=== PATIENT | female | born 1960 | race Caucasian/White ===

== ENCOUNTER 2016-11-28 14:50 | Observation (INO) | payer OTHER ==
[2016-11-28] MEDS ORDERED: NITROGLYCERINE 2 % OINTMENT PACK TOP ONE (15:14)
--- NOTE | 2016-11-28 15:17 | EDPRACDOC ---
- General Information Chief Complaint: Chest Pain Stated Complaint: CHEST PAIN; SHOB Time Seen by Provider: 11/28/16 15:13 Information Source: Patient Mode of Arrival: Car Home Medications: Home Medications Aspirin (Enteric Coated) [Ecotrin] 324 mg PO .ONCE 11/28/16 Esomeprazole Magnesium [Nexium] 40 mg PO BID 11/28/16 Levothyroxine [Synthroid, Levoxyl] 75 mcg PO DAILY 11/28/16 Mometasone/Formoterol [Dulera 200 Mcg/5 Mcg Inhaler] 1 puff INH BID 11/28/16 Nitroglycerin [Nitrostat] 0.4 mg SL .ONCE 11/28/16 Allergies/Adverse Reactions: Allergies Allergy/AdvReac Type Severity Reaction Status Date / Time codeine Allergy Anaphylaxis Verified 11/28/16 15:26 * - History of Present Illness Onset: last night HPI: PATIENT PRESENTS C/O CHEST PRESSURE MIDSTERNUM WITHOUT RADIATION THAT BEGAN LAST NIGHT. MILD SOB. NEVER OCCURRED BEFORE. DENIES PRIOR STRESS TEST OR ANGIOGRAM. HX OF THYROID DISEASE. DENIES HTN, HIGH CHOLESTEROL OR SMOKING. FATHER HAD UT AT 50. TOOK ASPIRIN 325 PRIOR TO ARRIVAL AT PCP OFFICE. NITRO TAKEN WELL WHICH IMPROVED PAIN Chest Pain Location: Reports: Substernal Pain Radiation: Reports: None Symptoms Occur: Reports: Gradually Cardiac Risk Factors: Reports: Family History. Denies: Smoker Cardiac History of: Reports: None PE Risk Factors: Reports: None Medications within 24 Hours: Reports: None Prehospital Care: Reports: None Pain Came On: Reports: Gradually Pain Status: Present Now Pain Description: Reports: Pressure Pain Severity: Mild Pain Worsens With: Reports: Nothing Pain Improves With: Reports: Nitroglycerin Associated Signs and Symptoms: Reports: SOB ED Past Medical History - History Reviewed Yes Nurses notes reviewed and agree except as marked Travel Outside of [place] in the Last 3 Months?: No - Patient Medical History Respiratory History: Reports: Asthma GI/ History: Reports: Gastroesophageal Reflux Surgical History: Reports: No Significant History - Social Medical History ETOH: None Substance Abuse: None Lives With: Family Lives In: Home EDM Review of Systems - Review of Systems ROS Negative Except as Marked: Yes All systems reviewed and were negative except as marked Constitutional: No Symptoms Reported. negative: Fever, Chills, Weakness, Fatigue, Loss of Appetite Eyes: No Symptoms Reported. negative: Redness, Blurred Vision, Double Vision, Discharge, Pain, Light Sensitive, Photophobia Ears: No Symptoms Reported. negative: Pain, Hearing Loss, Drainage, Ear Pulling Throat: No Symptoms Reported. negative: Pain, Swelling Nose: No Symptoms Reported. negative: Congestion, Bleeding, Discharge, Injection, Swelling, Deformity, Ecchymosis, Tender, Abrasion, Laceration Mouth: No Symptoms Reported. negative: Pain, Drooling Respiratory: No Symptoms Reported. negative: Cough, Brassy Cough, Barky Cough, Shortness of Breath, Wheezing, Hemoptysis Cardiovascular: Chest Pain. negative: Cyanosis, Edema, Orthopnea, Palpitations , PND, Syncope, Skin Mottling Gastrointestinal: No Symptoms Reported. negative: Pain, Constipation, Nausea, Vomiting, Diarrhea, Melena, Formula Intolerance Genitourinary: No Symptoms Reported. negative: Dysuria, Hematuria, Frequency, Discharge, Bleeding, Testicular Pain, Neurological: No Symptoms Reported. negative: Headache, Dizziness, Seizure, Numbness, Weakness, Speech Difficulty, Gait Difficulty Musculoskeletal: No Symptoms Reported. negative: Neck, Chestwall, Ribs, Back, Shoulder, Arm, Elbow, Forearm, Wrist, Hand, Pelvis, Hip, Femur, Knee, Leg, Ankle , Foot Integumentary: No Symptoms Reported. negative: Itching, Rash, Bruising, Wound Allergic/Immunologic: No Symptoms Reported. negative: Hives, Itching Hematologic: No Symptoms Reported. negative: Lymphadenopathy, Easy Bruising, Easy Bleeding Endocrine: No Symptoms Reported. negative: Weight Gain, Weight Loss Psychiatric: No Symptoms Reported. negative: Anxiety, Depression, Hallucinations, Insomnia, Suicidal - Physical Exam Constitutional: Alert (Awake), No apparent distress Oriented to: Time, Person, Place Last recorded Vital Signs: Last Vital Signs Temp 97.4 F L 11/28/16 15:01 Pulse 70 11/28/16 15:01 Resp 18 11/28/16 15:01 BP 152/78 11/28/16 15:01 Pulse Ox 100 11/28/16 15:01 Oxygen Pulse Oxygen Saturation 100 O2 Device Room Air Oxygen Flow Rate Fraction of Inspired Oxygen ( FIO2) - HEENT Head: Normal ( normocephalic) Eye Exam: Normal (PERRL, EOMI, Sclera white) Oropharynx: Normal (Pharynx:Moist without exudate,Gums-no swelling) Tympanic Membrane: Normal ENT EAC: Normal TMJ: Normal Nose: No Symptoms Reported (septum midline) Neck: Normal (FROM, trachea at midline) - Respiratory/Cardiovascular Respiratory: Normal - CTA (BBS clear to auscultation without adventitious sounds ) Cardiovascular: Normal (RRR without murmur, gallop or rub) - GI Auscultation: Normal (NABS) Palpation: Normal (Soft,No rebound or guarding, non distended) Tenderness: Non tender Lambert's Sign: Negative - Musculoskeletal Back: Normal (Non-Tender) Extremities: Normal (Normal tone, Pulses 2+ No cyanosis or edema, FROM) - Integumentary Skin: Normal, Warm, Dry Lymphatics: Normal (no adenopathy) - Neurologic Memory Impaired: Normal Motor Function: Normal (Normal tone, Pulses 2+ No cyanosis or edema, FROM) Cranial Nerve: Normal (CN II-X11 intact sensation, strength 5/5) Cerebellar: Normal Mood Description: Normal Perception: Normal - Action Patient received Aspirin within last 24 hours?: Yes ASA given in the ED: No Aspirin therapy held due to: Other-specify below* (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 Disposition: Admit IP To This Hospital Condition: Stable Final Diagnosis: Unstable angina Instructions: Chest Pain (ED) Education/Counseling Given To: Patient Education/Counseling Given Regarding: Diagnosis, Treatment, Prognosis Decision to Admit Time: 17:17 Decision to admit date: 11/28/16 Decision to admit: from ED - Physician Consulted Hospitalist Time Called: 17:17 Provider Called: Alfredito Delcid Time Personnel Associate Returned Call: 17:17
[2016-11-28 15:38] LABS: AUTOMATED BASOPHIL 0.7 % (0-2); AUTOMATED EOSINOPHIL 4.5 % (0-5); AUTOMATED LYMPH 31.7 % (17-44); AUTOMATED MONOCYTE 8.1 % (3-10); MPV 8.6 fL (7.4-10.4)
[2016-11-28 15:47] LABS: BLOOD UREA NITROGEN 14 MG/DL (7-17); CALCIUM 9.5 MG/DL (8.4-10.2); CALCULATED OSMOLALITY 275 MOs/Kg (270-290); CHLORIDE 106 mEq/L (98-107); GLUCOSE 87 MG/DL (70-99); SODIUM LEVEL 143 mEq/L (137-146); TOTAL PROTEIN 7.5 G/DL (6.3-8.2)
--- NOTE | 2016-11-28 15:52 | DIRPT ---
CLINICAL DATA: 56-year-old female with acute chest pain for 1 day. EXAM: PORTABLE CHEST 1 VIEW COMPARISON: 09/08/2011 and prior radiographs FINDINGS: The cardiomediastinal silhouette is unremarkable. There is no evidence of focal airspace disease, pulmonary edema, suspicious pulmonary nodule/mass, pleural effusion, or pneumothorax. No acute bony abnormalities are identified. IMPRESSION: No active disease. Electronically Signed By: Tyson Ray M.D. On: 11/28/2016 15:49
[2016-11-28 15:56] LABS: PARTIAL THROMB. TIME 25.9 SEC (22-35); PT-INR 1.1
[2016-11-28 16:23] LABS: FREE T3 4.41 pg/mL (2.77-5.27); FREE T4 1.91 ng/dL (0.78-2.19)
[2016-11-28 16:37] LABS: hTSH 0.27 uIU/mL (0.5-4.67)
[2016-11-28 18:06] VITALS: BMI 24.6
[2016-11-28] MEDS ORDERED: Pharmacy Review for Metformin - IV Contrast Given SCH (19:00)
[2016-11-28] MEDS ORDERED: NITROGLYCERINE 0.4 MG TAB SL PRN (19:00)
[2016-11-28] MEDS ORDERED: Vaccine Screening Complete SCH (19:00)
[2016-11-28] MEDS ORDERED: LEVALBUTEROL 0.63 MG IN 3 ML NEB NEB PRN (19:01)
--- NOTE | 2016-11-28 19:05 | HISTPHYS ---
- Chief Complaint chest pain - History of Present Illness 56 yowf presented emergency room early on today for evaluation of chest discomfort. Patient reports that yesterday she has had episodes of dyspnea with usual physical exertion. Patient reports that symptoms resolved with rest. Early on today patient developed chest discomfort which she describes as tightness squeezing and pressure sensation. She felt sweaty and nauseated and short of breath but denies any vomiting, she reports no radiation. Her symptoms while riding in the car. She stays that intensity was about 4/10 and she felt somewhat dizzy and lightheaded. Initially she went to urgent care where she received aspirin and nitroglycerin. She reports that medications help with dyspnea but not with chest discomfort. She was subsequently sent to emergency for further evaluation. On detailed questioning patient denies any recent chest symptoms with physical exertion. - Medical History Cardiac History: Reports: No Significant History, Hypercholesterolemia Respiratory History: Reports: No Significant History, Asthma. Denies: Pneumonia GI/ History: Reports: No Significant History, Gastroesophageal Reflux Musculoskeletal History: Reports: No Significant History Systemic History: Reports: No Significant History, Hypothyroidism. Denies: Anemia Neurological History: Reports: No Significant History Psychological History: Reports: No Significant History. Denies: Depression, Anxiety, Alcoholism - Surgical History Reports: No Significant History - Medictions/Allergies Allergies codeine Allergy (Verified 11/28/16 15:26) Anaphylaxis* Current Medication List: Reviewed Home Medications Aspirin (Enteric Coated) [Ecotrin] 324 mg PO .ONCE 11/28/16 Esomeprazole Magnesium [Nexium] 40 mg PO BID 11/28/16 Levothyroxine [Synthroid, Levoxyl] 75 mcg PO DAILY 11/28/16 Mometasone/Formoterol [Dulera 200 Mcg/5 Mcg Inhaler] 1 puff INH BID 11/28/16 Nitroglycerin [Nitrostat] 0.4 mg SL .ONCE 11/28/16 - Family History Reports: No Significant History, Hypertension, Cancer, Cardiac Disorders. Denies: Diabetes, Stroke - Social History Travel Outside of [place] in the Last 3 Months?: No Lives: With Family Smoking Status: Never smoker Social History: Denies: Alcohol Use - Review of Systems Constitutional: No Symptoms Reported Eyes: No Symptoms Reported Ears: No Symptoms Reported Nose: No Symptoms Reported Mouth: No Symptoms Reported Throat/Neck: No Symptoms Reported Respiratory: Shortness of Breath Cardiovascular: Chest Pain Gastrointestinal: Heartburn Genitourinary: No Symptoms Reported Neurological: No Symptoms Reported Musculoskeletal:: No Symptoms Reported Integumentary: No Symptoms Reported Allergic/Immunologic: No Symptoms Reported Hematologic: No Symptoms Reported Endocrine: No Symptoms Reported Psychiatric: No Symptoms Reported - Physical Exam Vital Signs: Initial Vitals Temperature 97.4 F L 11/28/16 15:01 Pulse Rate 70 11/28/16 15:01 Respiratory Rate 18 11/28/16 15:01 Blood Pressure 152/78 11/28/16 15:01 Pulse Oxygen Saturation 100 11/28/16 15:01 Constitutional: Alert Oriented to: Time, Person, Place - HEENT Head: Normal Eye: Normal Oropharynx: Normal ENT EAC: Normal TMJ: Normal Nose: No Symptoms Reported Respiratory: Normal - CTA, Rhonchi Cardiovascular: Normal - GI Auscultation: Normal Palpation: Normal Tenderness: Non tender Rectal Exam: Deferred - Exam Deferred: Yes - Musculoskeletal Back: Normal Extremities: Normal Spine: non-tender - Integumentary Skin: Normal, Warm, Dry Lymphatics: Normal - Neurologic Memory Impaired: Normal Motor Function: Normal Cranial Nerve: Normal Cerebellar: Normal Mood Description: Normal Thought: Coherent Perception: Normal - Focused CV Perfusion Exam Vital Signs: Last Vital Signs Temp 97.8 F 11/28/16 18:06 Pulse 74 11/28/16 18:28 Resp 20 11/28/16 18:06 BP 149/79 11/28/16 18:06 Pulse Ox 98 11/28/16 18:06 - Diagnostic Findings Allergies codeine Allergy (Verified 11/28/16 15:26) Anaphylaxis* Last Vital Signs Temp 97.8 F 11/28/16 18:06 Pulse 74 11/28/16 18:28 Resp 20 11/28/16 18:06 BP 149/79 11/28/16 18:06 Pulse Ox 98 11/28/16 18:06 11/28/16 15:30 11/28/16 15:30 Abnormal Lab Results 11/28/16 11/28/16 11/28/16 15:30 15:30 15:30 RBC 4.12 L MCH 32.1 H Alkaline Phosphatase 132 H TSH 0.27 L Patient Name: JEWELL BROCK LOC: ED : 1960 AGE: 56 Order Date:11/28/16 Date of Service:08/06 Report # [id number] Ord Physician: Crow Valencia DO Exam # [id number] Emergency Physician: ValenciaCrow DO Exam(s): [id number] RAD/DG CHEST PORTABLE CLINICAL DATA: 56-year-old female with acute chest pain for 1 day. EXAM: PORTABLE CHEST 1 VIEW COMPARISON: 09/08/2011 and prior radiographs FINDINGS: The cardiomediastinal silhouette is unremarkable. There is no evidence of focal airspace disease, pulmonary edema, suspicious pulmonary nodule/mass, pleural effusion, or pneumothorax. No acute bony abnormalities are identified. IMPRESSION: No active disease. Electronically Signed By: Tyson Ray M.D. On: 11/28/2016 15:49 EKG:nsr, no acute stt changes. - Assessment (1) Chest pain R07.9 - CHEST PAIN, UNSPECIFIED Acute Present on Admission: Yes Qualifiers: Chest pain type: unspecified Qualified Code(s): R07.9 - Chest pain, unspecified Patient will be admitted chest Pain Center. She will receive cardioprotective regimen in the form of beta-avis aspirin topical nitrates and Lovenox. Monitor serial EKGs and serial troponins. If she rules out will proceed with Rimma scan nuclear stress test. (2) GERD (gastroesophageal reflux disease) K21.9 - GASTRO-ESOPHAGEAL REFLUX DISEASE WITHOUT ESOPHAGITIS Acute Present on Admission: Yes Qualifiers: Esophagitis presence: without esophagitis Qualified Code(s): K21.9 - Gastro -esophageal reflux disease without esophagitis continue ppi (3) Hypothyroid E03.9 - HYPOTHYROIDISM, UNSPECIFIED Chronic Present on Admission: Yes Qualifiers: Hypothyroidism type: acquired Qualified Code(s): E03.9 - Hypothyroidism, unspecified continue home dose synthroid (4) Dyslipidemia E78.5 - HYPERLIPIDEMIA, UNSPECIFIED Acute Present on Admission: Yes obtain lipid pannel, add lipitor hs (5) Asthma J45.909 - UNSPECIFIED ASTHMA, UNCOMPLICATED Acute Present on Admission: Yes Qualifiers: Asthma severity: unspecified severity Asthma complication type: uncomplicated Qualified Code(s): J45.909 - Unspecified asthma, uncomplicated continue home meds. add prn xopenex neb (6) Dyspnea R06.00 - DYSPNEA, UNSPECIFIED Acute Present on Admission: Yes Qualifiers: Dyspnea type: shortness of breath Qualified Code(s): R06.02 - Shortness of breath CT angiogram of the chest will be obtained to rule out PE. Case Care Discussed with: Patient, Family, Nursing Staff Total Time: 55 min . Critical Care: No Code: [id number]
[2016-11-28 19:21] LABS: LDL (calc.) 109.2 MG/DL (<100); VLDL (calc.) 15.8 MG/DL (5-40)
[2016-11-28] MEDS: METOPROLOL TARTRATE 25 MG TAB PO SCH (19:51)
[2016-11-28] MEDS ORDERED: ENOXAPARIN 40 MG/0.4 ML PFS SQ SCH (20:00)
[2016-11-28] MEDS ORDERED: [UNRECOGNIZED DRUG - REMARK] SQ SCH (20:00)
--- NOTE | 2016-11-28 20:32 | DIRPT ---
CLINICAL DATA: Shortness of breath and chest pain for 1 day EXAM: CT ANGIOGRAPHY CHEST WITH CONTRAST TECHNIQUE: Multidetector CT imaging of the chest was performed using the standard protocol during bolus administration of intravenous contrast. Multiplanar CT image reconstructions and MIPs were obtained to evaluate the vascular anatomy. CONTRAST: 80 mL Isovue 370 nonionic COMPARISON: Chest CT January 10, 2006; chest radiograph November 28, 2016 FINDINGS: No acute appearing pulmonary embolus is seen. There is a small focus of irregularity in the proximal superior segment left lower lobe pulmonary artery with focal narrowing in this region extending over a distance of approximately 4 mm. This focus may represent residua of prior pulmonary embolus in this area. There is no thoracic aortic aneurysm or dissection. Visualized great vessels appear unremarkable. There is no parenchymal lung edema or consolidation. Visualized thyroid appears normal. There is no demonstrable thoracic adenopathy. The pericardium is not thickened. Visualized upper abdominal structures appear unremarkable. There are no blastic or lytic bone lesions. Review of the MIP images confirms the above findings. IMPRESSION: No acute pulmonary embolus seen. Question focus of chronic pulmonary embolus versus scarring from prior pulmonary embolus in the proximal superior segment left lower lobe pulmonary artery extending over approximately 4 mm. No lung edema or consolidation. No apparent adenopathy. Electronically Signed By: Yfn Connelly III, M.D. On: 11/28/2016 20:29
[2016-11-28] MEDS: ALBUTEROL 0.083% 3 ML NEB NEB SCH (20:57)
[2016-11-28] MEDS: BUDESONIDE 0.5 MG NEB NEB SCH (20:59)
[2016-11-28] MEDS ORDERED: Medication Special Instructions SCH (21:00)
[2016-11-28] MEDS ORDERED: [UNRECOGNIZED DRUG - OTHER] INH SCH (21:00)
[2016-11-28] MEDS ORDERED: MOMETASONE INH SCH (21:00)
[2016-11-28] MEDS ORDERED: FORMOTEROL INH SCH (21:00)
[2016-11-28] MEDS ORDERED: ATORVASTATIN 40 MG TAB PO SCH (21:00)
[2016-11-29] MEDS: NITROGLYCERINE 2 % OINTMENT PACK TOP SCH ×3 (00:07→10:45)
[2016-11-29] MEDS: ALBUTEROL 0.083% 3 ML NEB NEB SCH ×3 (03:08→14:03)
[2016-11-29 05:13] LABS: BLOOD UREA NITROGEN 16 MG/DL (7-17); CALCIUM 9.8 MG/DL (8.4-10.2); CALCULATED OSMOLALITY 272 MOs/Kg (270-290); CHLORIDE 105 mEq/L (98-107); GLUCOSE 97 MG/DL (70-99); SODIUM LEVEL 141 mEq/L (137-146)
[2016-11-29] MEDS ORDERED: PANTOPRAZOLE 40 MG TAB PO SCH (06:00)
[2016-11-29 06:30] LABS: LEUKOCYTES/URINE NEG (NEGATIVE); NITRITE/URINE NEG (NEGATIVE); RBC/URINE 0-2 (0-5); URINE OCCULT BLOOD NEG (NEG/TRACE); WBC/URINE 0-2 (0-5)
[2016-11-29] MEDS ORDERED: PNEUMOCOCCAL 0.5 ML VIAL IM ONE (08:00)
[2016-11-29] MEDS ORDERED: Aspirin (Orange Enteric Coated) 325 mg tab PO SCH (08:00)
[2016-11-29] MEDS ORDERED: SESTAMIBI 8 MCI V IV ONE (08:40)
[2016-11-29] MEDS ORDERED: LEVOTHYROXINE 50 MCG (0.05 MG) TAB PO SCH (09:00)
[2016-11-29] MEDS ORDERED: LEVOTHYROXINE 75 MCG (0.075 MG) TAB PO SCH (09:00)
[2016-11-29] MEDS: BUDESONIDE 0.5 MG NEB NEB SCH (09:27)
[2016-11-29 10:31] VITALS: BP 133/65; TEMP 98.6
[2016-11-29] MEDS: METOPROLOL TARTRATE 25 MG TAB PO SCH (10:44)
[2016-11-29] MEDS ORDERED: ACETAMINOPHEN 325 MG/TAB TABLET PO PRN (10:55)
[2016-11-29 10:56] VITALS: PULSE 83
[2016-11-29] MEDS ORDERED: ACETAMINOPHEN 325 MG/TAB TABLET PO ONE (10:58)
--- NOTE | 2016-11-29 12:57 | CAPUCARD ---
EXERCISE STRESS CARDIOLITE REST STRESS SCAN IDENTIFICATION: A 56-year-old female. REFERRING DOCTOR: Alfredito Delcid MD. INDICATION: Chest pain. FINDINGS: 1. The patient's baseline EKG reveals sinus rhythm, nonspecific ST-T changes. Resting heart rate 77, blood pressure 148/90 millimeters of mercury. 2. The patient exercised for 4 minutes and 30 seconds on standard Saroj protocol and achieved 80% predicted maximal heart rate with 6 METS of exercise. Test terminated because of dyspnea. No chest pain occurred. There were nondiagnostic EKG changes and no arrhythmias. 3. Cardiolite images do not reveal any evidence of ischemia. Ejection fraction is calculated to be normal greater than 65%. IMPRESSION: 1. No evidence of ischemia on the scan. 2. Normal ejection fraction. 3. No significant symptoms, EKG changes, or arrhythmias occurred. 4. Fair exercise capacity. [id number]
--- NOTE | 2016-11-29 13:13 | PCM.DCS92 ---
- Final/Secondary Discharge Diagnosis (1) Chest pain Acute R07.9 - CHEST PAIN, UNSPECIFIED Present on Admission: Yes unspecified R07.9 - Chest pain, unspecified Comment: Patient was admitted admitted chest Pain Center. She will receive cardioprotective regimen in the form of beta-avis aspirin topical nitrates and Lovenox. Monitor serial EKGs and serial troponins. Three troponins are negative, she had Lexiscan this morning as stress test, she had some chest tightness afterwards, but Lexiscan was completely unremarkable for any evidence of ischemia. (2) Asthma Acute J45.909 - UNSPECIFIED ASTHMA, UNCOMPLICATED Present on Admission: Yes unspecified severity uncomplicated J45.909 - Unspecified asthma, uncomplicated Comment: continue home meds. add prn xopenex neb while in the hospital (3) Dyslipidemia Acute E78.5 - HYPERLIPIDEMIA, UNSPECIFIED Present on Admission: Yes Comment: obtain lipid pannel, add lipitor hs (4) GERD (gastroesophageal reflux disease) Acute K21.9 - GASTRO-ESOPHAGEAL REFLUX DISEASE WITHOUT ESOPHAGITIS Present on Admission: Yes without esophagitis K21.9 - Gastro-esophageal reflux disease without esophagitis Comment: continue ppi Discharge Disposition: Home Discharge Condition: Stable Physician Follow up/Referrals: Zehra Ladd MD [Primary Care Provider] - One Week New Prescriptions: Atorvastatin Calcium [Lipitor] 40 mg PO HS #30 tablet Levothyroxine [Synthroid, Levoxyl] 50 mcg PO DAILY #30 tablet O2 Device: Room Air Diet at Discharge: Regular Activity: No Restrictions - DC Summary Notes HPI/Notes: This is a pleasant 56 elevation of the history of dyslipidemia and GERD who was admitted to the hospital with chest pain. She was ruled out of 10 as above, is ready for discharge home today. A statin was added to her regimen, as her LDL was over 100. She was encouraged to follow up with primary care provider regarding other potential causes of her chest pain. Please see the hospital problems and discharge problems above for details of the hospital course including diagnostics and treatment. The plan of care including medications, prognosis, follow-up including alarm symptoms for which medical care should be sought were reviewed with the patient and any available family members/caretakers. The patient is agreeable to discharge today, and all questions were answered by me to their satisfaction. Hospital Course Note:: Discharge summary on patient named JEWELL BROCK admitted to [facility] on 11/28/16 by Alfredito Delcid MD. Date of discharge is []. Total Time: 25 - Physical Exam Vital Signs: Last Vital Signs Temp 98.6 F 11/29/16 10:30 Pulse 83 11/29/16 10:55 Resp 18 11/29/16 10:30 BP 133/65 11/29/16 10:30 Pulse Ox 95 11/29/16 10:30 Oxygen Pulse Oxygen Saturation 95 O2 Device Room Air Oxygen Flow Rate Fraction of Inspired Oxygen ( FIO2) Constitutional: No apparent distress, Alert Oriented to: Time, Person, Place - HEENT Head: Normal Eye: Normal Oropharynx: Normal Tympanic Membrane: Normal (no discharge) ENT EAC: Normal TMJ: Normal Nose: No Symptoms Reported - Respiratory/Cardiovascular Respiratory: Normal - CTA, Rhonchi Cardiovascular: Normal - GI Auscultation: Normal Palpation: Normal Tenderness: Non tender Lambert's Sign: Negative Rectal Exam: Deferred - Musculoskeletal Back: Normal Extremities: Normal - Integumentary Skin: Normal, Warm, Dry Lymphatics: Normal - Neurologic Memory Impaired: Normal Motor Function: Normal (Motor 5/5 throughout.Normal tone, Pulses 2+ No cyanosis or edema, FROM) Cranial Nerve: Normal (CN II-XII intact sensation, strength 5/5) Cerebellar: Normal Mood Description: Normal Thought: Coherent Perception: Normal
== END 2016-11-29 14:20 | disposition home or self-care (01) ==
LOC: ED 14:50 → PCU 17:25
PROVIDERS: ADMIT Internal Medicine; ATTEND Internal Medicine
DX: R07.9 Chest pain, unspecified (principal); J45.909 Unspecified asthma, uncomplicated; E78.5 Hyperlipidemia, unspecified; K21.9 Gastro-esophageal reflux disease without esophagitis; E03.9 Hypothyroidism, unspecified; R06.00 Dyspnea, unspecified; Z79.82 Long term (current) use of aspirin; Z79.899 Other long term (current) drug therapy; Z23 Encounter for immunization
CPT/HCPCS: 36415; 71010; 71275; 78452; 80048; 80053; 80061; 81001; 83735; 83880; 84439; 84443; 84481; 84484; 85025; 85379; 85610; 85730; 87086; 90471; 90732; 93005; 93017; 94640; 96372; 99285; A9500; A9698; G0378; J1650; J3490; J7614